=== PATIENT | female | born 1955 | race Caucasian/White ===

== ENCOUNTER 2022-11-29 06:31 | Day surgery (SDC) | payer MEDICARE, OTHER ==
[2022-11-29] MEDS ORDERED: Lactated Ringers 1,000 ML IV SCH (07:00)
[2022-11-29] MEDS ORDERED: Lactated Ringers 1,000 ML IV ONE (07:10)
[2022-11-29] MEDS ORDERED: Xylocaine-Mpf 2% 5 Ml Vial ONE (07:56)
[2022-11-29] MEDS ORDERED: DIPRIVAN 200 MG/20 ML IV ONE (07:56)
--- NOTE | 2022-11-29 08:42 | OP ---
SURGERY DATE/TIME: 11/29/2022 0800 PREOPERATIVE DIAGNOSIS: History of colon polyps. POSTOPERATIVE DIAGNOSIS: Normal colon. PROCEDURE: Colonoscopy. SURGEON: Dr. Pop Brooks. ANESTHESIA: MAC. Medications given by anesthesia department. HISTORY: The patient is a 67-year-old white female apparently had polyps removed by Dr. Kamron Nelson. According to the patient's , there was a large area of tattooing in the right side of the colon that we noted during the examination. The patient was felt the need to have endoscopy for surveillance. She was appraised of the risks of the procedure including the risk of perforation, phlebitis, untoward reaction to medication, bleeding and missed lesions. The patient verbalized her understanding and desired to have the procedure performed. DESCRIPTION OF PROCEDURE: The patient was given the medications by the anesthesia department. She had continuous pulse oximetry, ECG monitoring, intermittent blood pressure monitoring during the examination. She was placed in the left lateral decubitus position. Digital rectal examination was performed and revealed normal anal sphincter tone and no masses. The flexible Olympus pediatric colonoscope was used to intubate the rectum. A view of the colon was developed sequentially to the cecum. Upon insertion and withdrawal it was noted the tattooing aforementioned in the right colon. Otherwise, no mucosal lesions were encountered. The scope was removed from the patient who tolerated the procedure well and sent back to outpatient recovery in good condition. The prep was noted to be good.
[2022-11-29 09:32] VITALS: BP 129/73; PULSE 65; O2SAT 95
== END 2022-11-29 09:25 | disposition home or self-care (01) ==
LOC: SDC 06:31
PROVIDERS: ATTEND Family Medicine
DX: Z09 Encounter for follow-up examination after completed treatment for conditions other than malignant neoplasm (principal); Z86.010 Personal history of colon polyps
CPT/HCPCS: J2704